=== PATIENT | female | born 1995 | race Two or more races ===

== ENCOUNTER 2024-07-01 05:18 | Day surgery (SDC) | payer OTHER ==
[2024-06-25 08:15] LABS: HEMATOCRIT 29.3 % (36.0-45.00); HEMOGLOBIN 8.9 g/dL (12.0-15.00); MEAN CELL VOLUME 60.7 fL (80.00-100.00); MEAN CORPUSCULAR HEMOGLOBIN 18.4 pg (27.00-32.0); MEAN CORPUSCULAR HGB CONC 30.2 g/dl (32.0-36.0); PLATELET COUNT 313 K/uL (150-450); RED BLOOD COUNT 4.83 M/uL (4.00-6.00); RED CELL DISTRIBUTION WIDTH 20.8 % (11.5-14.5)
[2024-06-25 08:40] LABS: INR 1.02; PARTIAL THROMBOPLASTIN TIME 27.6 SECONDS (22.0-34.0); PROTHROMBIN TIME 11.1 SECONDS (9.0-11.5)
[2024-06-25 08:50] LABS: ALBUMIN 3.5 gm/dL (3.4-5.0); BILIRUBIN TOTAL 0.4 mg/dL (0.3-1.2); CALCIUM 9.2 mg/dL (8.5-10.1); CREATININE SERUM 0.64 mg/dL (0.55-1.02); GFR 108.96; GLOBULINA 4.5 G/DL (2.4-3.5); POTASSIUM 4.23 mEq/L (3.5-5.1)
[2024-06-25 08:52] LABS: PH,URINE 5.5 (5.0-8.0); URINE APPEARANCE Clear; URINE BILIRRUBIN Negative (NEGATIVE); URINE BLOOD Moderate; URINE COLOR Yellow; URINE GLUCOSE Negative (NEGATIVE); URINE KETONE Negative (NEGATIVE); URINE LEUKOCYTE Negative; URINE NITRATE Negative; URINE PROTEIN Trace (NEGATIVE); URINE UROBILINOGEN 0.2 E.U./dl
[2024-06-25 08:58] LABS: URINE EPITHELIAL CELLS 3.8 uL (0.0-38.8); URINE RBC 430.8 uL (0.0-20.8)
[2024-06-25 09:04] LABS: URINE CAST 0.15 uL (0.0-1.40)
[2024-06-25 13:58] LABS: RH POSITIVE
[2024-07-01] MEDS ORDERED: CEFAZOLIN SODIUM 1,000 MG VIAL IV ONE (08:00)
[2024-07-01] MEDS ORDERED: POVIDONE-IODINE 118 ML BOTT TOP ONE (08:00)
[2024-07-01] MEDS ORDERED: DOXYCYCLINE HY100 MG PO (08:39)
[2024-07-01] MEDS ORDERED: NAPROXEN500 MG PO (08:40)
[2024-07-01] MEDS ORDERED: MAXFE CAPLET1 EAC1 PO (08:49)
== END 2024-07-01 14:05 | disposition home or self-care (01) ==
LOC: CIR.AMB 05:18
PROVIDERS: ATTEND Obstetrics & Gynecology
DX: D25.0 Submucous leiomyoma of uterus (principal); N84.0 Polyp of corpus uteri; N92.0 Excessive and frequent menstruation with regular cycle; I10 Essential (primary) hypertension; H52.10 Myopia, unspecified eye; Z88.5 Allergy status to narcotic agent

== ENCOUNTER 2024-12-09 10:48 | Emergency (ER) | payer OTHER ==
[~2024-12-09] VITALS: Ht 170.2 cm; Wt 89.4 kg
[~2024-12-09 10:48] MED LIST: DOXYCYCLINE HY100 MG PO; MAXFE CAPLET1 EAC1 PO; NAPROXEN500 MG PO
[2024-12-09] MEDS ORDERED: TENORMIN25 MG PO (11:06)
[2024-12-09] MEDS ORDERED: ONDANSETRON HCL 2 MG/ML VIAL IV STA (11:28)
[2024-12-09] MEDS ORDERED: 0.9 % SODIUM CHLORIDE 1,000 ML IV STA (11:28)
[2024-12-09 12:37] LABS: CALCIUM 9.6 mg/dL (8.5-10.1); CREATININE SERUM 0.7 mg/dL (0.55-1.02); GFR 98.25; POTASSIUM 3.89 mEq/L (3.5-5.1)
[2024-12-09 12:55] LABS: HEMATOCRIT 29.4 % (36.0-45.00); MEAN CORPUSCULAR HGB CONC 29.2 g/dl (32.0-36.0); PLATELET COUNT 364 K/uL (150-450); RED BLOOD COUNT 5.09 M/uL (4.00-6.00); RED CELL DISTRIBUTION WIDTH 19.6 % (11.5-14.5)
[2024-12-09 13:12] LABS: HEMOGLOBIN 8.6 g/dL (12.0-15.00); MEAN CELL VOLUME 57.8 fL (80.00-100.00); MEAN CORPUSCULAR HEMOGLOBIN 16.8 pg (27.00-32.0)
[2024-12-09 13:49] LABS: URINE APPEARANCE Cloudy; URINE BILIRRUBIN Negative (NEGATIVE); URINE BLOOD Large; URINE COLOR Yellow; URINE GLUCOSE Negative (NEGATIVE); URINE KETONE Negative (NEGATIVE); URINE LEUKOCYTE Trace; URINE NITRATE Negative; URINE PROTEIN Negative (NEGATIVE); URINE UROBILINOGEN 0.2 E.U./dl
[2024-12-09 13:58] LABS: URINE BACTERIA 106.4 uL (0.0-1933); URINE EPITHELIAL CELLS 10.1 uL (0.0-38.8); URINE RBC 1569.8 uL (0.0-20.8); URINE WBC 13.7 uL (0.0-23.2)
[2024-12-09 13:59] LABS: URINE CAST 0.14 uL (0.0-1.40)
== END 2024-12-09 16:06 | disposition home or self-care (01) ==
LOC: ER 10:50
PROVIDERS: Emergency Medicine
DX: N93.8 Other specified abnormal uterine and vaginal bleeding (principal); I10 Essential (primary) hypertension; Z88.8 Allergy status to other drugs, medicaments and biological substances

== ENCOUNTER 2024-12-13 19:50 | Emergency (ER) | payer OTHER ==
[~2024-12-13] VITALS: Ht 170.2 cm; Wt 89.4 kg
[~2024-12-13 19:50] MED LIST changes: +TENORMIN25 MG PO
[2024-12-13] MEDS ORDERED: 0.9 % SODIUM CHLORIDE 1,000 ML IV ONE (21:00)
[2024-12-13] MEDS ORDERED: FAMOtidine 10 MG/ML (4ML VIAL) IV ONE (21:00)
[2024-12-13] MEDS ORDERED: BUTALB/ACETAMINOPHEN/CAFFEINE 1 TAB TABLET PO ONE (21:00)
[2024-12-13 21:38] LABS: MEAN CELL VOLUME 58.6 fL (80.00-100.00); MEAN CORPUSCULAR HEMOGLOBIN 17.2 pg (27.00-32.0); MEAN CORPUSCULAR HGB CONC 29.4 g/dl (32.0-36.0); PLATELET COUNT 317 K/uL (150-450); RED BLOOD COUNT 4.57 M/uL (4.00-6.00); RED CELL DISTRIBUTION WIDTH 19.8 % (11.5-14.5)
[2024-12-13 21:40] LABS: HEMATOCRIT 26.8 % (36.0-45.00); HEMOGLOBIN 7.9 g/dL (12.0-15.00)
[2024-12-13 21:46] LABS: INR 1.01; PARTIAL THROMBOPLASTIN TIME 23.4 SECONDS (22.0-34.0)
[2024-12-13 21:48] LABS: ALBUMIN 3.7 gm/dL (3.4-5.0); BILIRUBIN TOTAL 0.19 mg/dL (0.3-1.2); CALCIUM 9.2 mg/dL (8.5-10.1); CREATININE SERUM 0.7 mg/dL (0.55-1.02); GFR 98.25; GLOBULINA 4.8 G/DL (2.4-3.5); POTASSIUM 4.06 mEq/L (3.5-5.1); TOTAL PROTEIN 8.5 gm/dL (6.4-8.2)
== END 2024-12-13 22:07 | disposition home or self-care (01) ==
LOC: ER 19:53
PROVIDERS: General Practice
DX: R53.1 Weakness (principal); N92.0 Excessive and frequent menstruation with regular cycle; D64.89 Other specified anemias; Z88.8 Allergy status to other drugs, medicaments and biological substances; I10 Essential (primary) hypertension

== ENCOUNTER 2024-12-14 11:34 | Inpatient (IN) | payer OTHER ==
[~2024-12-14] VITALS: Ht 152.4 cm; Wt 89.4 kg
[2024-12-14 12:40] VITALS: BP 129/72
[2024-12-14 12:53] VITALS: BP 129/72
[2024-12-14] MEDS ORDERED: RINGERS SOLUTION,LACTATED 1,000 ML IV SCH (13:00)
[2024-12-14 13:01] LABS: RH POSITIVE
[2024-12-14] MEDS ORDERED: BUTALB/ACETAMINOPHEN/CAFFEINE 1 TAB TABLET PO PRN (13:30)
[2024-12-14 15:41] VITALS: BP 120/77
[2024-12-14] MEDS ORDERED: ESTROGENS, CONJUGATED 25 MG VIAL IV SCH (17:00)
[2024-12-15] VITALS: BP 105/70
[2024-12-15] MEDS ORDERED: PROMETHAZINE HCL 25 MG/ML AMPUL IV PRN (03:15)
[2024-12-15 08:37] VITALS: BP 113/76
[2024-12-15 12:33] LABS: MEAN CORPUSCULAR HGB CONC 30.9 g/dl (32.0-36.0); PLATELET COUNT 317 K/uL (150-450); RED BLOOD COUNT 5.53 M/uL (4.00-6.00)
[2024-12-15 12:34] LABS: HEMOGLOBIN 10.8 g/dL (12.0-15.00); MEAN CELL VOLUME 63.2 fL (80.00-100.00); MEAN CORPUSCULAR HEMOGLOBIN 19.5 pg (27.00-32.0)
[2024-12-15 15:52] VITALS: BP 118/79
[2024-12-16] VITALS: BP 124/80; BP 93/60
[2024-12-16 07:40] VITALS: BP 118/85
[2024-12-16 16:59] VITALS: BP 109/68
[2024-12-16] MEDS ORDERED: FAMOTIDINE/PF 20 MG/2 ML VIAL IV PUSH SCH (17:00)
[2024-12-16 23:47] VITALS: BP 115/80
[2024-12-17 08:00] VITALS: BP 129/80; BP 99/63
== END 2024-12-17 12:05 | disposition left against medical advice (07) | DRG 812 ==
LOC: OB/GYN 11:34
PROVIDERS: ADMIT Obstetrics & Gynecology; ATTEND Obstetrics & Gynecology
PROC: 30233N1 Transfusion of Nonautologous Red Blood Cells into Peripheral Vein, Percutaneous Approach (ICD-10-PCS; principal; 2024-12-14)
DX: D50.0 Iron deficiency anemia secondary to blood loss (chronic) (principal); R53.1 Weakness; N93.8 Other specified abnormal uterine and vaginal bleeding; Z53.29 Procedure and treatment not carried out because of patient's decision for other reasons

== ENCOUNTER 2025-01-20 07:10 | Inpatient (IN) | payer OTHER ==
[~2025-01-20] VITALS: Ht 170.2 cm; Wt 89.8 kg
[2025-01-20 08:00] LABS: HEMATOCRIT 38.6 % (36.0-45.00); HEMOGLOBIN 12.4 g/dL (12.0-15.00); MEAN CORPUSCULAR HEMOGLOBIN 23.1 pg (27.00-32.0); PLATELET COUNT 250 K/uL (150-450); RED BLOOD COUNT 5.37 M/uL (4.00-6.00)
[2025-01-20 08:06] VITALS: BP 127/83
[2025-01-20 08:06] LABS: RED CELL DISTRIBUTION WIDTH 31.2 % (11.5-14.5)
[2025-01-20 08:10] VITALS: BP 118/79
[2025-01-20 08:10] LABS: URINE APPEARANCE Clear; URINE BACTERIA 80.7 uL (0.0-1933); URINE BILIRRUBIN Negative (NEGATIVE); URINE BLOOD Negative; URINE COLOR Yellow; URINE EPITHELIAL CELLS 4.5 uL (0.0-38.8); URINE GLUCOSE Negative (NEGATIVE); URINE KETONE Negative (NEGATIVE); URINE LEUKOCYTE Negative; URINE NITRATE Negative; URINE PROTEIN Trace (NEGATIVE); URINE RBC 2.5 uL (0.0-20.8); URINE UROBILINOGEN 0.2 E.U./dl; URINE WBC 6.9 uL (0.0-23.2)
[2025-01-20 08:13] LABS: INR 1.03; PARTIAL THROMBOPLASTIN TIME 28.3 SECONDS (22.0-34.0); PROTHROMBIN TIME 11.2 SECONDS (9.0-11.5)
[2025-01-20 08:53] LABS: ALBUMIN 4.1 gm/dL (3.4-5.0); BILIRUBIN TOTAL 0.38 mg/dL (0.3-1.2); CALCIUM 9.9 mg/dL (8.5-10.1); CREATININE SERUM 0.62 mg/dL (0.55-1.02); GFR 113.02; GLOBULINA 4.5 G/DL (2.4-3.5); POTASSIUM 4.28 mEq/L (3.5-5.1); TOTAL PROTEIN 8.6 gm/dL (6.4-8.2)
[2025-01-27] MEDS ORDERED: METRONIDAZOLE/SODIUM CHLORIDE 500 MG/100 ML PIGGYBACK IV ONE (07:08)
[2025-01-27] MEDS ORDERED: CEFOXITIN SODIUM 2,000 MG VIAL IV ONE (07:08)
[2025-01-27] MEDS ORDERED: POVIDONE-IODINE 118 ML BOTT TOP ONE (07:08)
[2025-01-27] MEDS ORDERED: THROMBIN,HU/FIBRINOGEN/CALCIUM 10 ML SYRINGE TOP ONE (09:58)
[2025-01-27] MEDS ORDERED: VISTASEAL DUAL APPICATOR 1 EACH APPL TOP ONE (10:19)
[2025-01-27] MEDS ORDERED: ONDANSETRON HCL 2 MG/ML VIAL IV PRN (10:45)
[2025-01-27] MEDS ORDERED: RINGERS SOLUTION,LACTATED 1,000 ML IV SCH (10:45)
[2025-01-27] MEDS ORDERED: KETOROLAC TROMETHAMINE 30 MG VIAL IV PRN (10:45)
[2025-01-27] MEDS ORDERED: TRAMADOL HCL 50 MG TABLET PO PRN (11:00)
[2025-01-27] MEDS ORDERED: ACETAMINOPHEN 500 MG GEL..CAP PO PRN (11:00)
[2025-01-27] MEDS ORDERED: MORPHINE SULFATE 4 MG/ML VIAL IV ONE (12:10)
[2025-01-27] MEDS ORDERED: SIMETHICONE 125 MG CAPSULE PO SCH (13:00)
[2025-01-27 14:23] VITALS: BP 127/83
[2025-01-27 16:38] VITALS: BP 117/78
[2025-01-27] MEDS ORDERED: FAMOTIDINE/PF 20 MG/2 ML VIAL IV SCH (17:00)
[2025-01-27 17:28] LABS: HEMATOCRIT 35.3 % (36.0-45.00); HEMOGLOBIN 11.2 g/dL (12.0-15.00); MEAN CELL VOLUME 73.9 fL (80.00-100.00); MEAN CORPUSCULAR HEMOGLOBIN 23.5 pg (27.00-32.0); MEAN CORPUSCULAR HGB CONC 31.8 g/dl (32.0-36.0); PLATELET COUNT 236 K/uL (150-450); RED BLOOD COUNT 4.78 M/uL (4.00-6.00)
[2025-01-28] VITALS: BP 139/80
[2025-01-28 08:24] VITALS: BP 128/85
[2025-01-28 11:40] VITALS: BP 111/76
[2025-01-28] MEDS ORDERED: KETO10TA2 PO (12:27)
[2025-01-28] MEDS ORDERED: SIMETHICONE125 M1 PO (12:28)
[2025-01-28] MEDS ORDERED: PEPCID AC20 MG PO (12:28)
== END 2025-01-28 12:41 | disposition home or self-care (01) | DRG 743 ==
LOC: OB/GYN 01-27 05:26 → O/R 01-27 05:26 → SURH 01-27 07:45 → OB/GYN 01-27 11:54
PROVIDERS: ADMIT Obstetrics & Gynecology; ATTEND Obstetrics & Gynecology
PROC: 0UT7FZZ Resection of Bilateral Fallopian Tubes, Via Natural or Artificial Opening With Percutaneous Endoscopic Assistance (ICD-10-PCS; 2025-01-27)
PROC: 0DNU4ZZ Release Omentum, Percutaneous Endoscopic Approach (ICD-10-PCS; 2025-01-27)
PROC: 0DNW4ZZ Release Peritoneum, Percutaneous Endoscopic Approach (ICD-10-PCS; 2025-01-27)
PROC: 0TJB8ZZ Inspection of Bladder, Via Natural or Artificial Opening Endoscopic (ICD-10-PCS; 2025-01-27)
PROC: 0UT9FZZ Resection of Uterus, Via Natural or Artificial Opening With Percutaneous Endoscopic Assistance (ICD-10-PCS; principal; 2025-01-27 09:45)
DX: N80.03 Adenomyosis of the uterus (principal); N92.0 Excessive and frequent menstruation with regular cycle; D25.1 Intramural leiomyoma of uterus; N81.11 Cystocele, midline

== ENCOUNTER 2025-02-05 20:56 | Emergency (ER) | payer OTHER ==
[~2025-02-05] VITALS: Ht 170.2 cm; Wt 89.8 kg
[~2025-02-05 20:56] MED LIST changes: +KETO10TA2 PO; +PEPCID AC20 MG PO; +SIMETHICONE125 M1 PO
[2025-02-05] MEDS ORDERED: 0.9 % SODIUM CHLORIDE 1,000 ML IV STA (21:35)
[2025-02-05] MEDS ORDERED: KETOROLAC TROMETHAMINE 30 MG VIAL IV STA (21:36)
[2025-02-05] MEDS ORDERED: TRAMADOL HCL 50 MG TABLET PO STA (21:37)
[2025-02-05] MEDS ORDERED: HYOSCYAMINE SULFATE 0.125 MG TAB.SUBL SL ONE (21:45)
[2025-02-05] MEDS ORDERED: KETOROLAC TROMETHAMINE 30 MG VIAL ONE (21:51)
[2025-02-05] MEDS ORDERED: HYOSCYAMINE SULFATE 0.125 MG TAB.SUBL ONE (21:51)
[2025-02-05 22:31] LABS: BASO % 0.2 % (0.1-1.2); EOS # 0.07 (0.04-0.54); EOS % 0.3 % (0.7-7.0); HEMATOCRIT 35.3 % (34.1-44.9); HEMOGLOBIN 11.4 g/dL (11.2-15.7); LYMPH # 1.97 (1.18-3.74); LYMPH % 9.2 % (19.3-53.1); MEAN CORPUSCULAR HEMOGLOBIN 24.4 pg (25.6-32.2); MONO # 0.62 (0.24-0.82); MONO % 2.9 % (4.7-12.5); NEUT # 18.62 (1.56-6.13); NEUT % 86.9 % (34.0-71.1); PLATELET COUNT 326 K/uL (163-369); RED BLOOD COUNT 4.68 M/uL (3.93-5.22); RED CELL DISTRIBUTION WIDTH 23.9 % (11.6-14.4)
[2025-02-05 22:47] LABS: INR 1.1; PARTIAL THROMBOPLASTIN TIME 27.8 SECONDS (22.0-34.0); PROTHROMBIN TIME 11.9 SECONDS (9.0-11.5)
[2025-02-05 22:51] LABS: ALBUMIN 3.7 gm/dL (3.4-5.0); BILIRUBIN TOTAL 0.4 mg/dL (0.3-1.2); CALCIUM 9.7 mg/dL (8.5-10.1); CREATININE SERUM 0.78 mg/dL (0.55-1.02); GFR 86.72; GLOBULINA 4.7 G/DL (2.4-3.5); POTASSIUM 4.32 mEq/L (3.5-5.1); TOTAL PROTEIN 8.4 gm/dL (6.4-8.2)
[2025-02-05 23:29] LABS: URINE APPEARANCE Clear; URINE BILIRRUBIN Negative (NEGATIVE); URINE BLOOD Negative; URINE COLOR Dark Yellow; URINE GLUCOSE Negative (NEGATIVE); URINE KETONE Trace (NEGATIVE); URINE LEUKOCYTE Trace; URINE NITRATE Negative; URINE PROTEIN 30 (NEGATIVE)
[2025-02-05 23:33] LABS: URINE BACTERIA 221.5 uL (0.0-1933); URINE EPITHELIAL CELLS 46.8 uL (0.0-38.8); URINE WBC 19.3 uL (0.0-23.2)
[2025-02-05 23:51] LABS: URINE CAST 0.88 uL (0.0-1.40)
[2025-02-06] MEDS ORDERED: PIPERACILLIN/TAZOBACTAM SODIUM 3.375 GM VIAL IV STA (00:08)
[2025-02-06] MEDS ORDERED: PIPERACILLIN/TAZOBACTAM SODIUM 3.375 GM VIAL IV ONE (00:36)
== END 2025-02-06 03:12 | disposition home or self-care (01) ==
LOC: ER 21:02
DX: G89.18 Other acute postprocedural pain (principal); R30.0 Dysuria; R16.2 Hepatomegaly with splenomegaly, not elsewhere classified; I88.0 Nonspecific mesenteric lymphadenitis; Z88.8 Allergy status to other drugs, medicaments and biological substances

== ENCOUNTER 2025-02-09 10:34 | Inpatient (IN) | payer OTHER ==
[~2025-02-09] VITALS: Ht 170.2 cm; Wt 89.8 kg
[2025-02-09] MEDS ORDERED: CIPRO500 MG/5 M (12:04)
--- NOTE | 2025-02-09 12:09 | NUR ---
PTE ALERTA Y ORIENTADO X3 REFIERE TENER DOLOR ABDOMINAL Y MAREOS, MAS PTE INDICA QUE EL MEDICAMENTOCIPROFLOXACIN LE CAUSA EL DOLOR ABDOMINAL , SE SOPHIA SV Y SE UBICA EN CAMA 07 CON BARRANDAS ELEVADAS.
--- NOTE | 2025-02-09 12:14 | NUR ---
SE KAILEY EKG Y EL MISMO SE DEMUESTRA A DR. SAGASTUME
[2025-02-09] MEDS ORDERED: FAMOTIDINE/PF 20 MG in 0.9 % SODIUM CHLORIDE 8 ML IV PUSH STA ×2 (12:47→15:24)
[2025-02-09] MEDS ORDERED: ONDANSETRON HCL 2 MG/ML VIAL IV ONE (13:00)
[2025-02-09] MEDS ORDERED: KETOROLAC TROMETHAMINE 30 MG VIAL IV ONE (13:00)
[2025-02-09] MEDS ORDERED: 0.9 % SODIUM CHLORIDE 1,000 ML IV SCH (13:00)
[2025-02-09] MEDS ORDERED: CEFTRIAXONE SODIUM 2,000 MG VIAL IV ONE (13:00)
[2025-02-09] MEDS ORDERED: KETOROLAC TROMETHAMINE 30 MG VIAL ONE (13:13)
[2025-02-09] MEDS ORDERED: FAMOTIDINE/PF 20 MG/2 ML VIAL ONE (13:14)
[2025-02-09] MEDS ORDERED: ONDANSETRON HCL 2 MG/ML VIAL ONE (13:14)
[2025-02-09] MEDS ORDERED: CEFTRIAXONE SODIUM 2,000 MG VIAL ONE (13:14)
[2025-02-09 13:48] LABS: BASO % 0.2 % (0.1-1.2); EOS # 0.17 (0.04-0.54); EOS % 1.4 % (0.7-7.0); HEMATOCRIT 34.4 % (34.1-44.9); HEMOGLOBIN 10.6 g/dL (11.2-15.7); LYMPH # 1.65 (1.18-3.74); LYMPH % 13.2 % (19.3-53.1); MEAN CORPUSCULAR HEMOGLOBIN 23.6 pg (25.6-32.2); MONO # 0.57 (0.24-0.82); MONO % 4.6 % (4.7-12.5); NEUT # 10.03 (1.56-6.13); NEUT % 80.2 % (34.0-71.1); PLATELET COUNT 327 K/uL (163-369); RED CELL DISTRIBUTION WIDTH 23.1 % (11.6-14.4)
--- NOTE | 2025-02-09 14:04 | NUR ---
SE ORIENTA A PACIENTE SOBRE [place] MEDICO, REFIERE ENTENDER. SE COLECTAN MUESTRAS DE LABORATORIO Y SE CANALIZA A PACIENTE BAJO MEDIDAS ASEPTICAS. SE ADMINISTRAN MEDICAMENTOS MELANIE ORDEN MEDICA. PENDIENTE CT/IV.
[2025-02-09 14:14] LABS: ALBUMIN 3.6 gm/dL (3.4-5.0); BILIRUBIN TOTAL 0.35 mg/dL (0.3-1.2); CALCIUM 9.4 mg/dL (8.5-10.1); CREATININE SERUM 0.67 mg/dL (0.55-1.02); GFR 103.34; GLOBULINA 5.2 G/DL (2.4-3.5); POTASSIUM 4.33 mEq/L (3.5-5.1); TOTAL PROTEIN 8.8 gm/dL (6.4-8.2)
[2025-02-09 14:38] LABS: PH,URINE 5.5 (5.0-8.0); URINE APPEARANCE Clear; URINE BACTERIA 12.2 uL (0.0-1933); URINE BILIRRUBIN Negative (NEGATIVE); URINE BLOOD Negative; URINE COLOR Yellow; URINE GLUCOSE Negative (NEGATIVE); URINE KETONE Negative (NEGATIVE); URINE LEUKOCYTE Negative; URINE NITRATE Negative; URINE RBC 13.9 uL (0.0-20.8); URINE UROBILINOGEN 0.2 E.U./dl; URINE WBC 8.2 uL (0.0-23.2)
[2025-02-09 14:50] LABS: URINE PROTEIN 100 (NEGATIVE)
[2025-02-09] MEDS ORDERED: PIPERACILLIN/TAZOBACTAM SODIUM 3.375 GM in 0.9 % SODIUM CHLORIDE 100 ML IV SCH (15:24)
[2025-02-09] MEDS ORDERED: ONDANSETRON HCL 2 MG/ML VIAL IV PRN (15:30)
[2025-02-09] MEDS ORDERED: KETOROLAC TROMETHAMINE 30 MG VIAL IV PRN (15:30)
[2025-02-09 16:29] VITALS: BP 114/78; O2SAT 98
[2025-02-09 16:34] VITALS: BP 114/78
[2025-02-09] MEDS ORDERED: PIPERACILLIN/TAZOBACTAM SODIUM 3.375 GM VIAL IV ONE (17:13)
[2025-02-10] MEDS ORDERED: KETOROLAC TROMETHAMINE 30 MG VIAL ONE (02:30)
[2025-02-10] MEDS ORDERED: PIPERACILLIN/TAZOBACTAM SODIUM 3.375 GM VIAL IV ONE (03:05)
[2025-02-10 07:27] LABS: BASO % 0.2 % (0.1-1.2); EOS # 0.23 (0.04-0.54); EOS % 1.8 % (0.7-7.0); HEMATOCRIT 31.7 % (34.1-44.9); HEMOGLOBIN 9.9 g/dL (11.2-15.7); LYMPH # 1.78 (1.18-3.74); LYMPH % 14.2 % (19.3-53.1); MEAN CORPUSCULAR HEMOGLOBIN 23.9 pg (25.6-32.2); MONO # 0.54 (0.24-0.82); MONO % 4.3 % (4.7-12.5); NEUT % 79.2 % (34.0-71.1); PLATELET COUNT 324 K/uL (163-369); RED BLOOD COUNT 4.15 M/uL (3.93-5.22)
[2025-02-10 09:50] VITALS: BP 116/79
[2025-02-10] MEDS ORDERED: IRON/V.C/V.B12/FOLIC A/VIT. E 1 CAPL CAPLET PO NR (14:00)
[2025-02-10 16:46] VITALS: BP 106/72
[2025-02-10] MEDS ORDERED: FAMOtidine 20 MG TABLET PO SCH (21:00)
[2025-02-11 01:58] VITALS: BP 109/61
[2025-02-11 08:00] VITALS: BP 111/75
[2025-02-11] MEDS ORDERED: IRON/V.C/V.B12/FOLIC A/VIT. E 1 CAPL CAPLET PO SCH (09:00)
[2025-02-11 16:01] VITALS: BP 116/80
[2025-02-11] MEDS ORDERED: VANCOMYCIN HCL 1,000 MG VIAL IV SCH (17:00)
[2025-02-11 18:17] LABS: CALCIUM 9.1 mg/dL (8.5-10.1); CREATININE SERUM 0.71 mg/dL (0.55-1.02); GFR 96.66; POTASSIUM 3.94 mEq/L (3.5-5.1)
[2025-02-12 01:16] VITALS: BP 114/77
[2025-02-12 08:16] VITALS: BP 114/75
[2025-02-12 16:10] VITALS: BP 108/68
[2025-02-13 02:33] VITALS: BP 112/76
[2025-02-13 07:32] LABS: ALBUMIN 3.1 gm/dL (3.4-5.0); BASO % 0.2 % (0.1-1.2); BILIRUBIN TOTAL 0.19 mg/dL (0.3-1.2); CALCIUM 8.6 mg/dL (8.5-10.1); CREATININE SERUM 0.65 mg/dL (0.55-1.02); EOS # 0.22 (0.04-0.54); EOS % 2.6 % (0.7-7.0); GFR 107.02; GLOBULINA 3.9 G/DL (2.4-3.5); HEMATOCRIT 31.3 % (34.1-44.9); HEMOGLOBIN 9.8 g/dL (11.2-15.7); LYMPH # 1.86 (1.18-3.74); LYMPH % 21.8 % (19.3-53.1); MEAN CORPUSCULAR HEMOGLOBIN 24.6 pg (25.6-32.2); MONO # 0.35 (0.24-0.82); MONO % 4.1 % (4.7-12.5); NEUT # 6.07 (1.56-6.13); NEUT % 70.9 % (34.0-71.1); PHOSPHOROUS 3.5 mg/dL (2.5-4.9); PLATELET COUNT 300 K/uL (163-369); POTASSIUM 4.2 mEq/L (3.5-5.1); RED BLOOD COUNT 3.99 M/uL (3.93-5.22); RED CELL DISTRIBUTION WIDTH 21.9 % (11.6-14.4)
[2025-02-13 07:56] LABS: C-REACTIVE PROTEIN 1.66 MG/DL (0.00-0.29)
[2025-02-13 08:01] VITALS: BP 105/66
[2025-02-13] MEDS ORDERED: LACTOBACILLUS ACIDOPHILUS 1 CAP CAP PO SCH (13:00)
[2025-02-13 15:53] VITALS: BP 120/78
[2025-02-14 01:06] VITALS: BP 118/78
[2025-02-14 08:14] VITALS: BP 123/82; O2SAT 98
[2025-02-14] MEDS ORDERED: VANCOMYCIN HCL 5 MG/ML REDILUIDO IV SCH (17:00)
[2025-02-15 00:33] VITALS: BP 137/94
[2025-02-15 07:32] LABS: CALCIUM 9.2 mg/dL (8.5-10.1); CREATININE SERUM 0.71 mg/dL (0.55-1.02); GFR 96.66; POTASSIUM 3.92 mEq/L (3.5-5.1)
[2025-02-15 08:00] VITALS: BP 119/80
[2025-02-15 15:49] VITALS: BP 122/82
[2025-02-16 00:22] VITALS: BP 126/80
[2025-02-16 09:03] VITALS: BP 113/68; O2SAT 99
[2025-02-16] MEDS ORDERED: DIATRIZOATE MEGLUMINE, SODIUM 30 ML BOTTLE PO NR (15:30)
[2025-02-16 15:56] VITALS: BP 113/76
[2025-02-17] VITALS: BP 124/80
[2025-02-17 06:59] LABS: BASO % 0.3 % (0.1-1.2); EOS # 0.28 (0.04-0.54); EOS % 2.8 % (0.7-7.0); HEMATOCRIT 33.9 % (34.1-44.9); HEMOGLOBIN 10.5 g/dL (11.2-15.7); LYMPH # 1.89 (1.18-3.74); LYMPH % 18.8 % (19.3-53.1); MONO # 0.52 (0.24-0.82); MONO % 5.2 % (4.7-12.5); NEUT # 7.29 (1.56-6.13); NEUT % 72.5 % (34.0-71.1); PLATELET COUNT 330 K/uL (163-369); RED BLOOD COUNT 4.37 M/uL (3.93-5.22); RED CELL DISTRIBUTION WIDTH 21.8 % (11.6-14.4)
[2025-02-17 07:55] LABS: ALBUMIN 3.4 gm/dL (3.4-5.0); BILIRUBIN TOTAL 0.25 mg/dL (0.3-1.2); CALCIUM 9.2 mg/dL (8.5-10.1); CREATININE SERUM 0.74 mg/dL (0.55-1.02); GFR 92.15; GLOBULINA 4.2 G/DL (2.4-3.5); MAGNESIUM 1.9 mg/dL (1.8-2.4); PHOSPHOROUS 4.6 mg/dL (2.5-4.9); POTASSIUM 4.32 mEq/L (3.5-5.1); TOTAL PROTEIN 7.6 gm/dL (6.4-8.2)
[2025-02-17 07:56] LABS: C-REACTIVE PROTEIN 1.29 MG/DL (0.00-0.29)
[2025-02-17 08:17] VITALS: BP 113/76
[2025-02-17] MEDS ORDERED: AMOX-CLAV 875-1 EACH PO (13:58)
[2025-02-17] MEDS ORDERED: PEPCID AC20 MG PO (13:59)
[2025-02-17] MEDS ORDERED: METRONIDAZOLE500 MG PO (13:59)
[2025-02-17] MEDS ORDERED: INTESTINEX680 M1 PO (14:00)
== END 2025-02-17 14:33 | disposition home or self-care (01) | DRG 759 ==
LOC: ER 11:07 → OB/GYN 16:31 → SEC-K 16:31 → OB/GYN 02-10 07:42
PROVIDERS: General Practice; Internal Medicine Infectious Disease; ADMIT Obstetrics & Gynecology; ATTEND Obstetrics & Gynecology
PROC: BW21ZZZ Computerized Tomography (CT Scan) of Abdomen and Pelvis (ICD-10-PCS; principal; 2025-02-09)
PROC: BW21YZZ Computerized Tomography (CT Scan) of Abdomen and Pelvis using Other Contrast (ICD-10-PCS; 2025-02-09)
PROC: BW21ZZZ Computerized Tomography (CT Scan) of Abdomen and Pelvis (ICD-10-PCS; 2025-02-16)
PROC: BW21YZZ Computerized Tomography (CT Scan) of Abdomen and Pelvis using Other Contrast (ICD-10-PCS; 2025-02-16)
DX: N73.2 Unspecified parametritis and pelvic cellulitis (principal)